=== PATIENT | male | born 1990 | race Hispanic/Latino ===

== ENCOUNTER 2016-12-05 12:12 | Emergency (ER) | payer BC ==
[2016-12-05 12:20] VITALS: BP 137/71; PULSE 73; RESP 16; TEMP 98.7; O2SAT 99
--- NOTE | 2016-12-05 12:29 | ED PDOC ---
Lower Extremity Pain/Injury Time Seen by Provider: 12/05/16 12:20 Chief Complaint (Nursing): Lower Extremity Problem/Injury Chief Complaint (Provider): Left foot Pain History Per: Patient History/Exam Limitations: no limitations Onset/Duration Of Symptoms: Mins Current Symptoms Are (Timing): Still Present Additional Complaint(s): Patient is a 26 year old male presenting to the emergency department for left foot pain and swelling prior to arrival. He reports that he dropped a heavy wooden bed frame onto his left foot while wearing flip flops. Denies numbness, tingling, or other injuries. Of note, he had a stress fracture on the same foot when he was 5 years old. PCP: Dr. Jose Guadalupe Becker Past Medical History Reviewed: Historical Data, Nursing Documentation, Vital Signs Vital Signs: Last Vital Signs Temp 98.7 F 12/05/16 12:18 Pulse 73 12/05/16 12:18 Resp 16 12/05/16 12:18 BP 137/71 12/05/16 12:18 Pulse Ox 99 12/05/16 12:18 - Medical History PMH: Fractures (Stress fracture on left foot) - Family History Family History: States: Unknown Family Hx - Home Medications Home Medications: Ambulatory Orders Medication Instructions Recorded Naproxen [Naprosyn] 500 mg PO BID PRN #30 tab 12/05/16 - Allergies Allergies/Adverse Reactions: Allergies Allergy/AdvReac Type Severity Reaction Status Date / Time morphine Allergy SHORTNESS Verified 12/05/16 12:20 OF BREATH Review of Systems ROS Statement: Except As Marked, All Systems Reviewed And Found Negative Musculoskeletal: Positive for: Foot Pain (Left foot pain and swelling) Neurological: Negative for: Numbness, Other (Tingling) Physical Exam - Reviewed Nursing Documentation Reviewed: Yes Vital Signs Reviewed: Yes - Physical Exam Appears: Positive for: Well, Non-toxic, No Acute Distress Head Exam: Positive for: ATRAUMATIC, NORMAL INSPECTION, NORMOCEPHALIC Skin: Positive for: Normal Color, Warm, Dry Pulses-Dorsalis Pedis (L): 2+ Extremity: Positive for: Normal ROM (Active, left foot and ankle), Tenderness ( left foot on dorsum), Capillary Refill (Less than 2 seconds, left foot), Swelling (Dorsum of left foot), Other (Mild ecchymosis, skin intact, and 2+ dorsalis pedis on left foot). Negative for: Deformity (No breaking skin integrity) Neurologic/Psych: Positive for: Alert, Oriented - ECG O2 Sat by Pulse Oximetry: 99 (RA) Pulse Ox Interpretation: Normal - Progress ED Course And Treament: Pt. 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 Foot x-ray: non-displaced 2nd [place]uneiform [place]. [id number] Case d/w Angeles, podiatry resident, and will see patient in ED. 1430 Pt. evaluated by Angeles in ED. 1445 Pt. requesting pain meds. Toradol 15mg [place] ordered. [id number] September discussed case with Dr. Springer who recommends Jackson dressing, crutches, and f/u in his office this week. September wrapped foot in jackson dressing. Crutches and crutch walking instructions given. Medical Decision Making Medical Decision Making: Time: 12:26 Initial Impression: Left foot pain Initial Plan: * Left Foot X-Ray * Reevaluation 12:56 --X-ray read by me: Small fracture noted. --Podiatry consult. 14:35 -Production Broaching Machine Operator evaluated patient. 14:50 Production Broaching Machine Operator consulted YUDY with agreement to provide medical paperwork for 3 days off work for patient. Compression dressing applied to manage swelling. Crutches routine. Upon provider reevaluation patient is medically stable, and requires no further treatment in the ED at this time. Patient will be discharged with Rx for Naproxen 500 mg. Counseling was provided and all questions were answered regarding diagnosis and need for follow up with Dr. Jasiel Springer. There is agreement to discharge plan. Return if symptoms persist or worsen. Scribe Attestation: Documented by Muna Aranda, acting as a scribe for Sandro Valles PA-C. Provider Scribe Attestation: All medical record entries made by the Scribe were at my direction and personally dictated by me. I have reviewed the chart and agree that the record accurately reflects my personal performance of the history, physical exam, medical decision making, and the department course for this patient. I have also personally directed, reviewed, and agree with the discharge instructions and disposition. Disposition - Clinical Impression Clinical Impression: Foot fracture - Patient ED Disposition Is Patient to be Admitted: No - Disposition Referrals: Jasiel Springer MD [Staff Provider] - Disposition: Routine/Home Disposition Time: 14:50 Condition: STABLE Additional Instructions: FOLLOW UP WITH DR. SPRINGER TOMORROW WITHOUT FAIL. Prescriptions: Naproxen [Naprosyn] 500 mg PO BID PRN #30 tab PRN Reason: Pain Instructions: Crutch Instructions (ED), Foot Fracture in Adults (ED) Forms: [facility] ED School/Work Excuse Print Language: KYRGYZ
--- NOTE | 2016-12-05 16:12 | RAD ---
PROCEDURE: Left Foot Radiographs. HISTORY: trauma COMPARISON: None. FINDINGS: BONES: Normal. No fracture. Dorsal talar spur formation. JOINTS: Normal. SOFT TISSUES: Normal. OTHER FINDINGS: None. IMPRESSION: No fracture.
--- NOTE | 2016-12-06 22:42 | CP.PCM.CON ---
History of Present Illness - History of Present Illness History of Present Illness: 26 year old male seen in ED holding complaining of pain on the top of his left foot. Patient is resting comfortably, AAOx3 and NAD. Patient is accompanied by his mother. Patient states that a part of a bed frame fell on top of his left foot while attempting to move a bed. Patient states that he was wearing flip flops when this incident occurred. Patient states he took Tylenol prior to his arrival to the ED. Patient states that he has had several injuries to his left limb in the past. Patient states he had a stress fracture in his left foot in the past. Patient denies N/V/F/D/C/SOB. No other pedal complaints at this time. PMH: unremarkable PSH: none Meds: see home med list All: morphine FH: Non-contributory SH: non-contributory Review of Systems - Review of Systems All systems: reviewed and no additional remarkable complaints except (as per HPI ) Past Patient History - Infectious Disease Hx of Infectious Diseases: None - Past Social History Smoking Status: Never Smoked - MUSCULOSKELETAL/RHEUMATOLOGICAL Hx Fractures: Yes (Stress fracture on left foot) - PSYCHIATRIC Hx Substance Use: No Meds Home Medications: Home Medication List Medication Instructions Recorded Confirmed Type Naproxen [Naprosyn] 500 mg PO BID PRN #30 tab 12/05/16 Rx Allergies/Adverse Reactions: Allergies Allergy/AdvReac Type Severity Reaction Status Date / Time morphine Allergy SHORTNESS Verified 12/05/16 12:20 OF BREATH Physical Exam - Constitutional Appears: Well, Non-toxic, No Acute Distress - Extremities Exam Additional comments: Focused LLE exam: Vasc: DP and PT pulses palpalble 2/4. CFT <3 seconds to all digits x5. TG warm to warm. Nonpitting edema noted to L midfoot. Neuro: Gross sensation intact. Derm: Ecchymosis noted to dorsum of midfoot. Linear erythematous della form dorsomedial midfoot to dorsolateral forefoot. No open lesions, rashes, or subcutaneous nodules noted. Ortho: Pain on palpation to dorsal midfoot. Negative pain piano nolen test. Positive pain on medial and lateral squeeze of midfoot. - Neurological Exam Neurological exam: Alert, Oriented x3 - Psychiatric Exam Psychiatric exam: Normal Affect, Normal Mood Results - Vital Signs Recent Vital Signs: Last Vital Signs Temp 98.7 F 12/05/16 12:18 Pulse 73 12/05/16 12:18 Resp 16 12/05/16 12:18 BP 137/71 12/05/16 12:18 Pulse Ox 99 12/05/16 15:20 Assessment & Plan - Assessment and Plan (Free Text) Assessment: 26 year old male with intermediate cuneiform fx left foot secondary to trauma Plan: Patient seen and evaluated in ED holding. Discussed with attending, Dr. Springer. Chart, vitals reviewed = afebrile L foot XR taken and reviewed = intermediate cuneiform fx Galloway dressing applied to LLE. Informed patient that he is to be NWB with crutches until his visit with Dr. Springer. Patient demonstrates verbal understanding. Crutches dispensed to patient. Recommend RICE therapy Recommend Rx Naproxyn 500 mg Patient is to follow up with Dr. Springer in office next week. Stable per podiatry standpoint. Thank you for this consult, please reconsult us again as needed. - Date & Time Date: 12/05/16 Time: 14:00
== END 2016-12-05 15:36 | disposition home or self-care (01) ==
LOC: H.ER 12:12
DX: S92.902A Unspecified fracture of left foot, initial encounter for closed fracture (principal); W22.8XXA Striking against or struck by other objects, initial encounter; Y92.89 Other specified places as the place of occurrence of the external cause
CPT/HCPCS: 73630; 96372; 99283; J1885